=== PATIENT | female | born 1970 | race Caucasian/White ===

== ENCOUNTER 2022-11-10 14:24 | Outpatient (CLI) | payer BC ==
[2022-11-10 14:54] LABS: Hemoglobin 13.4 g/dL (12.0-15.5); Mean Corpuscular HGB CONC 34.1 g/dL (32.0-36.0); Mean Corpuscular Hemoglobin 30.9 pg (27.0-33.0); Mean Corpuscular Volume 90.6 fl (81.6-98.3); Mean Platelet Volume 9.4 fl (7.4-10.4); Platelet Count 271 10x3/uL (150-450); RBC Distribution Width 12.3 % (11.5-14.5); Red Blood Cell (RBC) Count 4.34 10x6/uL (3.90-5.03); White Blood Cell (WBC) Count 4.5 10x3/uL (3.5-10.5)
[2022-11-10 15:13] LABS: INR-International Normal Ratio 0.9; PTT 26.9 sec (22.0-33.0); Prothrombin Time 10.2 sec (9.5-12.1)
== END 2022-11-10 14:25 | disposition home or self-care (01) ==
LOC: LABBT 14:24
PROVIDERS: ATTEND Neurological Surgery
DX: Z01.812 Encounter for preprocedural laboratory examination (principal); M48.061 Spinal stenosis, lumbar region without neurogenic claudication; M48.07 Spinal stenosis, lumbosacral region
CPT/HCPCS: 85027; 85610; 85730

== ENCOUNTER 2022-11-11 10:14 | Day surgery (SDC) | payer BC ==
[2022-11-10 12:13] VITALS: BMI 28.3
[2022-11-11] MEDS ORDERED: Famotidine/PF 20 mg/2ml Vial ONE (11:23)
[2022-11-11] MEDS ORDERED: FENTANYL 50 MCG/ML 1 ML VIAL ONE (11:25)
[2022-11-11] MEDS ORDERED: SUGAMMADEX SODIUM 200 MG/2 ML VIAL ONE (11:25)
[2022-11-11] MEDS ORDERED: Midazolam HCl 2 mg/2 ml Vial ONE (11:42)
[2022-11-11] MEDS ORDERED: Bupivacaine/Epinephrine 0.25% 30 ML VIAL ONE (11:48)
[2022-11-11] MEDS ORDERED: Bupivacaine HCl 0.5%/Epinephrine 1:200,000/PF 30 ml Vial ONE (11:48)
[2022-11-11] MEDS ORDERED: Thrombin 5000 UNITS/5 ML VIAL ONE (11:48)
[2022-11-11] MEDS ORDERED: Neomycin-Polymyxin 1 ML AMP ONE (11:48)
[2022-11-11] MEDS ORDERED: Sodium Chloride 0.9% 100 ML ONE (12:16)
[2022-11-11] MEDS ORDERED: CEFAZOLIN 2 GM VIAL ONE (12:16)
[2022-11-11] MEDS ORDERED: Rocuronium Bromide 10 MG/ML (10ML VIAL) ONE (12:23)
[2022-11-11] MEDS ORDERED: PHENYLEPHRINE-NS 100 MCG/ML 10 ML SYRINGE ONE (12:23)
[2022-11-11] MEDS ORDERED: Dexamethasone 20 MG/5 ML VIAL ONE (12:23)
[2022-11-11] MEDS ORDERED: PROPOFOL 200 MG/20 ML VIAL ONE (12:23)
[2022-11-11] MEDS ORDERED: Ondansetron PF 4 MG/2 ML Vial ONE (12:23)
[2022-11-11] MEDS ORDERED: Ketorolac Tromethamine 30 MG/ML VIAL ONE (12:23)
[2022-11-11] MEDS ORDERED: Metoclopramide HCl 10 MG/2 ML VIAL ONE (12:23)
[2022-11-11] MEDS ORDERED: ePHEDrine 50 MG/ML VIAL ONE (12:23)
[2022-11-11] MEDS ORDERED: Lidocaine 1% PF 5 ML VIAL ONE (12:23)
[2022-11-11] MEDS ORDERED: Vancomycin 1 GM VIAL ONE (12:29)
[2022-11-11] MEDS ORDERED: Fentanyl 100 MCG/2 ML VIAL ONE (14:52)
== END 2022-11-11 16:20 | disposition home or self-care (01) ==
LOC: SDC 10:14
PROVIDERS: ATTEND Neurological Surgery
PROC: 01NR0ZZ Release Sacral Nerve, Open Approach (ICD-10-PCS; principal; 2022-11-11)
PROC: 01NB0ZZ Release Lumbar Nerve, Open Approach (ICD-10-PCS; principal; 2022-11-11)
DX: M48.062 Spinal stenosis, lumbar region with neurogenic claudication (principal); M48.07 Spinal stenosis, lumbosacral region; M54.16 Radiculopathy, lumbar region; Z79.899 Other long term (current) drug therapy
CPT/HCPCS: J1100; J1885; J2250; J2405; J2704; J2765; J3010; J3370; J3490; S0028